=== PATIENT | male | born 1985 | race Caucasian/White ===

== ENCOUNTER 2019-08-04 07:31 | Emergency (ER) | payer OTHER, SELFPAY ==
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
[2019-08-04 07:50] VITALS: BP 178/96; PULSE 83; RESP 18; TEMP 36.7; O2SAT 99
[2019-08-04 08:37] LABS: Add Urine Microscopic? YES; Appearance Urine Clear (Clear); Bacteria Urine Trace /hpf; Bilirubin Urine Negative (Negative); Blood Urine 1+ (Negative); Color Urine Straw (Yellow); Glucose Urine UA Negative (Negative); Ketones Urine Negative (Negative); Leukocyte Esterase Ur Negative LEU/UL (Negative); Mucus Urine Rare /lpf; Nitrate Urine Negative (Negative); Protein Urine Negative (Negative); RBC Urine 0-2 /hpf (0-2); Specific Grav Ur 1.017 (1.001-1.035); Urobilinogen Urine Negative mg/dL (<2.0); WBC Urine 0-3 /hpf
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
[2019-08-04] MEDS: KETOROLAC (*BKC) 60 MG/2 ML VIAL IM (09:08)
[2019-08-04] MEDS: TETANUS,DIPHTHERIA,AC PERTUSSIS ADULT 0.5 ML (ADACEL) (10:12)
[2019-08-04 10:15] VITALS: BP 155/86; PULSE 84; RESP 16; O2SAT 97
== END 2019-08-04 10:25 | disposition home or self-care (01) ==
PROVIDERS: Physician Assistant; Emergency Provider Emergency Medicine; PCP Internal Medicine Gastroenterology
DX: S06.0X0A Concussion without loss of consciousness, initial encounter (principal); S01.91XA Laceration without foreign body of unspecified part of head, initial encounter; S51.012A Laceration without foreign body of left elbow, initial encounter; S39.012A Strain of muscle, fascia and tendon of lower back, initial encounter; Z23 Encounter for immunization; V58.5XXA Driver of pick-up truck or van injured in noncollision transport accident in traffic accident, initial encounter
CPT/HCPCS: 12002; 70450; 72125; 72131; 73080; 81001; 90471; 90715; 96372; 99284; J1885